=== PATIENT | female | born 1935 | race Caucasian/White ===

== ENCOUNTER 2021-05-31 21:41 | Inpatient (IN) | payer MEDICARE, OTHER ==
[~2021-05-31] VITALS: Ht 160 cm; Wt 53.9 kg
[~2021-05-31 21:41] MED LIST: ARICEPT10 MG PO; DIOVAN HCT 3201 EACH PO; K-DUR TAB 10 M10 MEQ PO; LEXAPRO20 MG PO; LIPITOR TAB 1010 MG PO; NAMENDA10 MG PO; OMNICEF 300 MG300 MG PO; PREVACID30 MG PO
[2021-05-31 22:25] LABS: RED BLOOD COUNT 3.99 M/UL (4.00-5.10); WHITE BLOOD COUNT 14.4 K/UL (4.5-11.0)
[2021-06-01 05:23] LABS: HEMOGLOBIN 10.5 gm/dl (12.3-15.3)
[2021-06-01 05:39] LABS: RED BLOOD COUNT 3.57 M/UL (4.00-5.10); WHITE BLOOD COUNT 10.7 K/UL (4.5-11.0)
[2021-06-01] MEDS ORDERED: NORVASC10 MG PO (12:28)
[2021-06-02 08:26] LABS: HEMOGLOBIN 10.9 gm/dl (12.3-15.3); RED BLOOD COUNT 3.76 M/UL (4.00-5.10); WHITE BLOOD COUNT 10.1 K/UL (4.5-11.0)
[2021-06-03 06:38] LABS: HEMOGLOBIN 11.1 gm/dl (12.3-15.3); RED BLOOD COUNT 3.77 M/UL (4.00-5.10); WHITE BLOOD COUNT 7.7 K/UL (4.5-11.0)
[2021-06-05 06:35] LABS: RED BLOOD COUNT 3.73 M/UL (4.00-5.10); WHITE BLOOD COUNT 8.1 K/UL (4.5-11.0)
[2021-06-06 07:02] LABS: HEMOGLOBIN 10.1 gm/dl (12.3-15.3); RED BLOOD COUNT 3.53 M/UL (4.00-5.10); WHITE BLOOD COUNT 7.5 K/UL (4.5-11.0)
[2021-06-07 08:01] LABS: HEMOGLOBIN 11.7 gm/dl (12.3-15.3); WHITE BLOOD COUNT 8.6 K/UL (4.5-11.0)
[2021-06-07 08:07] LABS: RED BLOOD COUNT 4.02 M/UL (4.00-5.10)
[2021-06-08] MEDS ORDERED: MAG-OX 400 TAB400 MG PO (12:05)
[2021-06-08] MEDS ORDERED: NORVASC10 MG PO (12:05)
[2021-06-08] MEDS ORDERED: K-DUR TAB 10 M10 MEQ PO (12:05)
[2021-06-08] MEDS ORDERED: FLORANEX GRANU1 EACH PO (12:05)
[2021-06-08] MEDS ORDERED: FLUCONAZOLE50 MG PO (12:05)
[2021-06-08] MEDS ORDERED: MYCOSTATIN CREA15 GM TOP (12:05)
== END 2021-06-08 16:11 | DRG 603 ==
LOC: ER1 21:41 → M/S 06-01 00:19 → CDU 06-01 00:19 → M/S 06-01 17:19
PROVIDERS: Emergency Medicine; Family Medicine; Internal Medicine; ADMIT Internal Medicine
DX: L03.116 Cellulitis of left lower limb (principal); N30.00 Acute cystitis without hematuria; Z20.822 Contact with and (suspected) exposure to COVID-19; N17.9 Acute kidney failure, unspecified; B37.89 Other sites of candidiasis; Z66 Do not resuscitate; E87.6 Hypokalemia; I95.9 Hypotension, unspecified; N18.2 Chronic kidney disease, stage 2 (mild); I12.9 Hypertensive chronic kidney disease with stage 1 through stage 4 chronic kidney disease, or unspecified chronic kidney disease; L03.115 Cellulitis of right lower limb; B96.20 Unspecified Escherichia coli [E. coli] as the cause of diseases classified elsewhere; T36.1X5A Adverse effect of cephalosporins and other beta-lactam antibiotics, initial encounter; I87.2 Venous insufficiency (chronic) (peripheral); E78.5 Hyperlipidemia, unspecified; M81.0 Age-related osteoporosis without current pathological fracture; Z96.653 Presence of artificial knee joint, bilateral; F01.50 Vascular dementia, unspecified severity, without behavioral disturbance, psychotic disturbance, mood disturbance, and anxiety; B37.3 Candidiasis of vulva and vagina; R53.81 Other malaise; Z88.1 Allergy status to other antibiotic agents; Z88.0 Allergy status to penicillin
CPT/HCPCS: 36415; 80048; 80053; 81001; 82607; 83735; 84132; 85025; 85027; 87086; 93005; 94760; 97110-GP-CQ; 97116-GP-CQ; 97162; 97166; 97530-GP-CQ; 97535; 99285; J0696; J1650; J3420; J3480; J7050; U0002